=== PATIENT | female | born 1950 | race Caucasian/White ===

== ENCOUNTER → 2016-09-28 | Outpatient (CLI) | payer MEDICARE ==
[~2016-09-28] MED LIST: ADVI200C9 PO; CALTTAB5 PO; CENTTAB9 PO; FISH1000 PO; GEMF600 PO; GLUCTAB PO; LIPI40TA PO; TOPR25TA2 PO; VASO10TA8 PO
[2016-09-28 13:27] LABS: BACTERIA, URINE RARE /hpf; BLOOD, URINE NEG (NEG); GLUCOSE,URINE NEG (NEG); KETONE, URINE NEG (NEG); MUCUS URINE FEW /lpf (OCC); NITRITE,URINE NEG (NEG); PH, URINE 5.5 (5.0-8.5); SQUAMOUS EPITHELIAL CELL URINE 4 /hpf (0-5); URINE COLOR YELLOW (YELLW/STRAW)
[2016-09-28 13:37] LABS: ANION GAP 7 MEQ/L (5-15); BLOOD UREA NITROGEN 19 MG/DL (7-18); CHLORIDE 97 MEQ/L (98-107); GLUCOSE,FASTING 101 MG/DL (74-99); POTASSIUM 3.3 MEQ/L (3.5-5.1); SODIUM (NA) 137 MEQ/L (136-145)
[2016-09-28 13:44] LABS: ALKALINE PHOSPHATASE 75 U/L (45-117); ALT (GPT) 32 U/L (10-53); AST (GOT) 25 U/L (15-37); GLOMERULAR FILTRATION RATE 58 ML/MIN (>89); HDL CHOLESTEROL 39.9 MG/DL (40.0-60.0); LDL CHOLESTEROL 93 MG/DL (0-99); TOTAL BILIRUBIN ADULT 1.5 MG/DL (0.2-1.0)
== END ==
LOC: PLAB 10:13
PROVIDERS: ATTEND Family Medicine
DX: I10 Essential (primary) hypertension (principal); E78.2 Mixed hyperlipidemia
CPT/HCPCS: 36415; 80053; 80061; 81001

== ENCOUNTER → 2016-12-26 | Outpatient (CLI) | payer MEDICARE ==
[2016-12-26 16:09] LABS: BACTERIA, URINE RARE /hpf; BLOOD, URINE NEG (NEG); GLUCOSE,URINE NEG (NEG); KETONE, URINE NEG (NEG); MUCUS URINE FEW /lpf (OCC); NITRITE,URINE NEG (NEG); SQUAMOUS EPITHELIAL CELL URINE <1 /hpf (0-5); URINE COLOR LIGHT-YELLOW (YELLW/STRAW)
== END ==
LOC: PLAB 12:15
PROVIDERS: ATTEND Family Medicine
DX: R31.9 Hematuria, unspecified (principal)
CPT/HCPCS: 81001

== ENCOUNTER → 2017-05-12 | Outpatient (CLI) | payer MEDICARE ==
[2017-05-12 10:47] LABS: ALKALINE PHOSPHATASE 73 U/L (45-117); ALT (GPT) 35 U/L (10-53); TOTAL BILIRUBIN ADULT 1.5 MG/DL (0.2-1.0)
[2017-05-12 10:54] LABS: ANION GAP 12 MEQ/L (5-15); AST (GOT) 34 U/L (15-37); BICARBONATE 28.3 MEQ/L (21.0-32.0); BLOOD UREA NITROGEN 15 MG/DL (7-18); CHLORIDE 100 MEQ/L (98-107); GLOMERULAR FILTRATION RATE 64 ML/MIN (>89); GLUCOSE,FASTING 118 MG/DL (74-99); POTASSIUM 3.9 MEQ/L (3.5-5.1); SODIUM (NA) 140 MEQ/L (136-145)
== END ==
LOC: PLAB 08:26
PROVIDERS: ATTEND Family Medicine
DX: I10 Essential (primary) hypertension (principal); E78.2 Mixed hyperlipidemia
CPT/HCPCS: 36415; 80053; 80061

== ENCOUNTER 2017-08-07 05:14 | Observation (INO) | payer MEDICARE ==
[~2017-08-07] VITALS: Ht 162.6 cm; Wt 116.7 kg
[~2017-08-07 05:14] MED LIST changes: +ACET650T67 PO; -ADVI200C9 PO; +ASPI1TAB57 PO; +ATEN50TA7 PO; -CALTTAB5 PO; -CENTTAB9 PO; -FISH1000 PO; -GEMF600 PO; -GLUCTAB PO; +KRIL1000 PO; +LOSA25TA PO; +OCUVTAB4 PO; -TOPR25TA2 PO; -VASO10TA8 PO
[2017-08-07] MEDS ORDERED: ceFAZolin 2 GM PREMIX 50 ML IV SCH (05:45)
[2017-08-07] MEDS ORDERED: LACTATED RINGER'S 1000 ML IV PRN (05:45)
[2017-08-07] MEDS ORDERED: METOPROLOL TARTRATE 25 MG TAB PO PRN (05:45)
[2017-08-07] MEDS ORDERED: SODIUM CHLORID 0.9% 500 ML IV PRN (05:45)
[2017-08-07] MEDS ORDERED: CHLORHEXIDINE GLUCONATE 2 % 1 PACK (2 CLOTHS) TOPICAL PRN (05:45)
[2017-08-07] MEDS ORDERED: HEPARIN SODIUM - SQ 10,000 UNITS/ML VIAL SQ PRN (05:45)
[2017-08-07] MEDS ORDERED: POVIDONE IODINE 5% (ANTISEPSIS KIT) 4 APPLICATIONS EACH NARE PRN (05:45)
[2017-08-07] MEDS ORDERED: SODIUM CHLORIDE FLUSH PRN IV FLUSH (05:45)
[2017-08-07] MEDS ORDERED: ACETAMINOPHEN 1000 MG/100 ML 100 ML IV ONE (06:31)
[2017-08-07] MEDS ORDERED: SUGAMMADEX SODIUM 200 MG/2 ML VIAL IV PUSH ONE ×2 (06:31)
[2017-08-07] MEDS ORDERED: ARTIFICIAL TEARS OPTH OINT 3.5 APPLIC/3.5 GM TUBO ONE (06:32)
[2017-08-07] MEDS ORDERED: SODIUM CHLORIDE FLUSH BID IV FLUSH SCH (09:00)
[2017-08-07] MEDS ORDERED: LIDOCAINE 1%/EPINEPHrine 1:100,000 SOLN 20 ML VIAL INFIL ONE (10:07)
[2017-08-07] MEDS ORDERED: SODIUM CHLORIDE 0.9% FLUSH 10 ML FLUSH IV FLUSH PRN (10:45)
[2017-08-07] MEDS ORDERED: ONDANSETRON HCL 4 MG/2 ML VIAL IVP PRN (10:45)
[2017-08-07] MEDS ORDERED: diphenhydrAMINE HCL 25 MG CAP PO PRN (10:45)
[2017-08-07] MEDS ORDERED: oxyCODONE/ACETAMINOPHEN 5 MG/325 MG TAB PO PRN (10:45)
[2017-08-07] MEDS ORDERED: LORazepam 0.5 MG TAB PO PRN (10:45)
[2017-08-07] MEDS ORDERED: DO NOT ADM ANY ANTICOAGULANT DRUGS PRN (10:57)
[2017-08-07] MEDS ORDERED: *morphine SULFATE 8 MG/ML PERIprocedure ONLY ONE (11:06)
[2017-08-07] MEDS ORDERED: LIDOCAINE HCL 1% PF 5 ML SYRINGE OTHER ONE (12:00)
[2017-08-07] MEDS ORDERED: ePHEDrine/NS 25 MG/5 ML SYR IV ONE (12:00)
[2017-08-07] MEDS ORDERED: STERILE WATER FOR INJECTION 20 ML VIAL IV ONE (12:00)
[2017-08-07] MEDS ORDERED: ONDANSETRON HCL 4 MG/2 ML VIAL IV ONE (12:00)
[2017-08-07] MEDS ORDERED: PHENYLEPH/NS 1000 MCG/10 ML SYR IV ONE (12:00)
[2017-08-07] MEDS ORDERED: ROCURONIUM INJ 50 MG/5 ML SYRINGE IV PUSH ONE (12:00)
[2017-08-07] MEDS ORDERED: DEXAMETHASONE SOD PHOS 4 MG/ML VIAL IV ONE (12:00)
[2017-08-07] MEDS ORDERED: PROPOFOL 200 MG/20 ML AMP IV ONE (12:00)
[2017-08-07] MEDS ORDERED: VECURONIUM BROMIDE 20 MG VIAL IV ONE (12:00)
[2017-08-07] MEDS ORDERED: NORMOSOL R INJ 1,000 ML IV ONE (12:00)
[2017-08-07] MEDS ORDERED: KETOROLAC TROMETHAMINE 30 MG/ML (IVP) VIAL IV PUSH ONE (12:00)
[2017-08-07] MEDS ORDERED: LABETALOL HCL 100 MG/20 ML VIAL IV ONE (12:00)
[2017-08-07] MEDS ORDERED: MIDAZOLAM HCL 2 MG/2 ML VIAL IV ONE (12:00)
[2017-08-07] MEDS: KETOROLAC TROMETHAMINE 30 MG/ML (IVP) VIAL IVP SCH ×2 (12:00→18:25)
[2017-08-07] MEDS: D5-1/2 NS + KCL 20 MEQ INJ 1,000 ML IV SCH ×2 (12:21→21:12)
--- NOTE | 2017-08-07 12:29 | MP ---
cc: PHILLY DE LEON MD, KELLY L. MD SCHNEIDER, JULIE D. MD DATE OF SURGERY: 08/07/2017 PREOPERATIVE DIAGNOSIS Grade 1 endometrial adenocarcinoma. POSTOPERATIVE DIAGNOSIS 1. Grade 1 endometrial adenocarcinoma. 2. Left pelvic sidewall adhesions. PROCEDURE Robotic-assisted laparoscopic hysterectomy, bilateral salpingo-oophorectomy, lysis of adhesions. SURGEON Chinyere Joel MD VESSEL MANAGER Duncan or first assist registered nurse. ANESTHESIA General endotracheal anesthesia. ESTIMATED BLOOD LOSS 100 ccs. IV FLUIDS 1300 ccs. URINE OUTPUT 100 ccs. HISTORY 66-year-old female who had postmenopausal bleeding that she states started in May of this year, lead to further evaluation. Evaluation included an ultrasound, showed a thickened endometrial stripe of approximately 12 mm. There was a fullness near the fundus, part of which was thought to be a leiomyoma. Biopsy showed a grade 1 endometrial adenocarcinoma. CAT scan of the chest, abdomen and pelvis showed no overt evidence of metastatic disease. There was no pelvic or periaortic adenopathy. No ascites, intraperitoneal nodularity or mass. There was a small nodule noted in all lung of undetermined significance and followup imaging at some point was recommended. She has been counseled regarding these findings and options. She is seen again in the preop holding area where the findings are reviewed. Plan of care is discussed. Questions were answered. She expressed good understanding and agreed to move forward with surgery. STATEMENT OF COMPLEXITY/MODIFIER Complexity of case increased due to body habitus, weight 116.5 kilograms (BMI of 44) and also due to additional time required to lyse adhesions to mobilize the colon from its fixation against the left pelvic sidewall. Modifier should be applied accordingly. FINDINGS The uterine cavity sounded to 7 cm on nulliparous pelvic outlet. The tubes and ovaries grossly appeared normal. There were no appreciably enlarged pelvic or para-aortic lymph nodes. The liver diaphragm edges were smooth. The omentum, large, small bowel and adjacent mesentery appeared grossly normal with no peritoneal implants, no nodularity. The colon was fixed in the left pelvic sidewall overlying the left pelvic sidewall structures suggesting probable history of diverticulitis or other inflammatory colitis, no acute inflammation but adhesions persisted. There was some adhesions in the posterior cul-de-sac on the left. The uterus once removed showed a tumor to be approximately 4.8 cm in dimension, exophytic but there was invasion into the myometrium that appeared to be approximately 50% depth of invasion. There was no endocervical extension. The tumor was grade 1. PROCEDURE She was taken to the operating room and placed in dorsal lithotomy position after general endotracheal anesthesia was administered, time-out was undertaken. She was identified by sight recognition and hospital ID bracelet and the proposed procedure was reviewed and confirmed. She was carefully positioned in padded Rambo stirrups. Her arms were padded and secured to the sides. She was further secured to the operating table with eggcrate padding and tape in across chest over the shoulder fashion. All sites noted to be properly aligned with no malalignments or pressure points. She was prepped, draped in sterile fashion, placed in high lithotomy position. Narrow pelvic outlet did not allow entry of speculum so handheld small right-angle retractors were used to gain access. Digital exam identified and normal circumferentially smooth cervix and tenaculum was used and grasped the cervix. At this point the endocervical canal was identified. The endocervix was gradually dilated. The uterine cavity sounded to 7 cm and a small V-Care manipulator was inserted and secured in the usual fashion. Alegre catheter was placed in the bladder. She was returned to low lithotomy position. Change of sterile gloves was undertaken. We completed draping in anticipation of laparoscopy, confirmed that an orogastric tube was in the stomach on suction. With manual elevation of the abdominal wall and direct laparoscopic visualization a 5 mm cannula was placed in the left upper quadrant and atraumatic entry was confirmed as carbon dioxide gas was insufflated. 12 mm cannula was placed in the midline above the umbilicus, 8 mm cannula was placed in the right upper quadrant and left lateral quadrant and the original 5-mm exchanged for a 8-mm cannula. She was placed in Trendelenburg position. Peritoneal washings were obtained for cytology. The anatomy was surveyed with findings as described above. The small bowel was folded back on its mesenteric root and three Ray-Joshua sponges were placed around the root of small bowel mesentery. Robotic system was brought into the operative field, attached in usual fashion. Monopolar scissors, fenestrated bipolar forceps and Prograsp manipulators were placed in arms #1, 2 and 3, respectively and I took my place at the surgeon's console. Right round ligament was isolated, cauterized, transected. The anterior and posterior leafs of the broad ligament were opened. The right ureter was identified. The right infundibulopelvic ligament was isolated. The intervening peritoneum was opened. The infundibulopelvic ligament was isolated to the level of the pelvic brim where it was cauterized and transected. Posterior peritoneum was opened along the right side of the uterus and the cervix and the right vesicouterine peritoneum was dissected off the lower uterine segment and cervix. The right uterine vessels were skeletonized, cauterized and transected as were the cardinal, paracervical and uterosacral ligaments, thereby freeing the attachments along the right side of the uterus and cervix. Attention was directed toward the left side. Adhesions were taken down with sharp dissection, mobilizing the bowel and the mesentery and pericolonic fat that were adherent and overlying the left pelvic sidewall structures. These were taken down in stepwise fashion. The adhesions in the cul-de-sac were freed and the adhesions were taken proximally to mobilize the bowel up over the pelvic brim to gain access to the left pelvic sidewall structures. The left round ligament was isolated, cauterized and transected. The anterior and posterior leafs of the broad ligament were opened. The left ureter was identified and the left infundibulopelvic ligament was isolated. The intervening peritoneum was opened. The infundibulopelvic ligament was isolated to the level of the pelvic brim where it was cauterized and transected. Posterior peritoneum was opened along the left side of the uterus and cervix. The left vesicouterine peritoneum was dissected off the lower uterine segment and cervix. The left uterine vessels were skeletonized. The left uterine vessels were cauterized and transected as were the cardinal, paracervical and uterosacral ligaments, thereby freeing the attachments along the left side of the uterus and cervix. Circumferential colpotomy was performed the cervix on the upper vagina. The specimen was delivered transvaginally which included uterus, cervix, tubes and ovaries and a pneumooccluder balloon was placed in the vagina to maintain pneumoperitoneum. Instruments one and three exchanged for needle drivers as 0 Vicryl suture was introduced, the vaginal cuff was closed and secured at the left corner, full-thickness closure to the vaginal wall plus incorporating posterior peritoneum and edge of the uterosacral ligament, tied via instrument tie. The closure was held on countertraction as a running continuous full-thickness closure was carried across the vaginal apex incorporating the posterior peritoneum similarly affixing it at the right corner where it was tied securely. The needle was cut and removed. The integrity of the bladder was confirmed by filling the bladder with saline dyed with methylene blue and the bladder filled nicely under pressure. There were no areas of thinning of the bladder, certainly no extravasation of dye and a good margin between the vaginal cuff suture line and the bladder. Good peristalsis of ureters bilaterally and the bladder was drained. Pelvis was thoroughly irrigated. Small bleeders rendered hemostatic with bipolar cautery and hemostatic Surgicel powder was placed across the vaginal cuff. Preliminary pathology came back with low intermediate risk factors and that the tumor was 4.8 cm approximately 50% depth of invasion, but it was a grade 1 tumor, no endocervical extension. Careful inspection and palpation of the lymph node basins was undertaken. Knowing also that the CAT scan showed no overt evidence of abnormality, taking into account the potential morbidity versus potential benefit, a decision was made to forego formal lymphadenectomy. Taken into account is her body habitus, performance status. She has significant back pain that already may affect her gait, it was difficult for her to move from the stretcher to the surgical bed. She has some lower extremity edema and it was felt that the potential morbidity of lymph node dissection may exceed the benefit and it was felt therefore that all reasonable surgical objectives were completed in this individual. The robotic instruments were removed. The robotic system was disengaged from the operative field. I reentered the bedside under sterile condition. Each of the three Ray-Joshua sponges that were introduced were grasped and removed individually, each were inspected and noted to be removed in their entirety. Inspection of the peritoneal cavity revealed no remaining foreign objects and the preliminary counts were correct. The 12-mm fascial defect was closed with 0 Vicryl sutures using a fascia closure device with laparoscopic guidance, the sutures were tied securely which rendered the fascia completely airtight and hemostatic. The remaining cannulas were withdrawn. Carbon dioxide gas was removed from the peritoneal cavity. 3-0 Vicryl subcutaneous, 3-0 Vicryl subcuticular and Steri-Strips were used to close these incisions. She was returned to dorsal lithotomy position. The vaginal cuff was well supported, hemostatic. There were no vaginal lacerations in the upper vagina. There was some superficial mucosal irritation circumferentially around the introitus but without active bleeding other than just mild diffuse oozing and the remainder of the Surgicel powder was placed in the vaginal canal overlying these areas. Final counts were correct. There were no remaining foreign objects in the vagina. She was returned to dorsal supine position and was pending reversal of anesthesia when I left the operating room to precede her to the Post Anesthesia Care Unit. MD EBONY Dior/RICCARDO /11:03 AM /11:48 AM
--- NOTE | 2017-08-07 15:29 | PD.ONC.PN ---
Subjective Subjective Remarks post op check pt seen in PACU awaiting bed no complaints back pain, but that is chronic Objective Data Date Time Temp Pulse Resp B/P (MAP) Pulse Ox O2 Delivery O2 Flow Rate FiO2 08/07/17 13:30 83 15 123/59 (80) 100 Nasal Cannula 3 08/07/17 13:00 82 16 130/64 (86) 100 Nasal Cannula 3 08/07/17 12:30 98.7 84 16 107/56 (73) 100 Nasal Cannula 2 08/07/17 12:00 80 16 124/60 (81) 100 Nasal Cannula 3 08/07/17 11:45 80 17 119/57 (77) 100 Nasal Cannula 3 08/07/17 11:30 82 14 118/59 (78) 100 Nasal Cannula 3 08/07/17 11:15 86 15 118/58 (78) 98 Nasal Cannula 3 08/07/17 10:57 98.3 94 14 127/72 (90) 93 Nasal Cannula 3 08/07/17 06:48 98.8 75 18 100/57 (71) 95 08/07/17 08/07/17 08/07/17 07:00 15:00 23:00 Intake Total 1300 ml Output Total 200 ml Balance 1100 ml Administered Medications Medications (Trade) Dose Ordered Sig/Lamin Route PRN Reason Start Time Stop Time Status Last Admin Dose Admin Povidone Iodine (Betadine 5% Antisepsis Kit) 1 applic DIGITAL CARTOGRAPHIC TECHNICIAN PRN EACH NARE SEE LABEL COMMENTS 08/07/17 05:45 08/10/17 05:44 08/07/17 06:43 Chlorhexidine Gluconate (Chlorhexidine 2% Cloth) 3 pack DIGITAL CARTOGRAPHIC TECHNICIAN PRN TOPICAL SEE LABEL COMMENTS 08/07/17 05:45 08/10/17 05:44 08/07/17 06:00 Cefazolin Sodium/ Dextrose 50 ml @ 100 mls/hr DIGITAL CARTOGRAPHIC TECHNICIAN IV 08/07/17 05:45 08/10/17 05:44 08/07/17 06:38 Heparin Sodium (Porcine) (Heparin Inj) 5,000 units DIGITAL CARTOGRAPHIC TECHNICIAN PRN SQ GIVE PRE-OP DIGITAL CARTOGRAPHIC TECHNICIAN TO OR 08/07/17 05:45 08/07/17 22:00 08/07/17 06:39 Potassium Chloride/Dextrose/ Sod Cl 1,000 ml @ 100 mls/hr Q10H IV 08/07/17 10:43 12/11/17 12:21 Objective Remarks GENERAL: Well-nourished, well-developed patient. SKIN: Warm and dry. HEAD: Normocephalic. EYES: No scleral icterus. No injection or drainage. CARDIOVASCULAR: Regular rate and rhythm without murmurs. RESPIRATORY: Breath sounds equal bilaterally. No accessory muscle use. GASTROINTESTINAL: Abdomen soft, SS are c/d/i EXTREMITIES: teds and scds MUSCULOSKELETAL: Adequate muscle tone. NEUROLOGICAL: No obvious focal deficit, sleeping but awakens to voice PSYCHIATRIC: Appropriate mood and affect; insight and judgment normal. Assessment/Plan Problem List: (1) Endometrial cancer ICD Codes: C54.1 - Malignant neoplasm of endometrium Plan: s/p RA lap hyst with BSO for endometrial cancer post op orders in chart ADAT ice chips now OOB to chair pain meds per EMR D/C yovani in morning and anticipate discharge home tomorrow Teri Ervin Aug 07, 2017 15:29
[2017-08-07 16:00] VITALS: BP 106/42; PULSE 101; RESP 17; TEMP 99.7; O2SAT 96
[2017-08-07] MEDS: oxyCODONE/ACETAMINOPHEN 5 MG/325 MG TAB PO PRN (16:09)
[2017-08-07 20:00] VITALS: BP 104/47; PULSE 95; RESP 20; TEMP 99.5; O2SAT 96
[2017-08-07] MEDS: SODIUM CHLORIDE 0.9% FLUSH 10 ML FLUSH IV FLUSH SCH (21:00)
[2017-08-07] MEDS ORDERED: ATORVASTATIN 40 MG TAB PO SCH (21:00)
[2017-08-07] MEDS ORDERED: ATENOLOL/CHLORTHALIDONE 50/25 TAB PO SCH (21:00)
[2017-08-07] MEDS ORDERED: LOSARTAN 25 MG TAB PO SCH (21:00)
[2017-08-08] MEDS: KETOROLAC TROMETHAMINE 30 MG/ML (IVP) VIAL IVP SCH ×2 (01:05→06:10)
[2017-08-08 04:00] VITALS: BP 93/42; PULSE 92; RESP 20; TEMP 97.5; O2SAT 97
[2017-08-08] MEDS: SODIUM CHLORIDE 0.9% FLUSH 10 ML FLUSH IV FLUSH SCH (07:48)
[2017-08-08] MEDS: D5-1/2 NS + KCL 20 MEQ INJ 1,000 ML IV SCH (07:48)
[2017-08-08 08:00] VITALS: BP 119/56; PULSE 92; RESP 17; TEMP 99.6; O2SAT 96
[2017-08-08] MEDS ORDERED: OXYC1TAB63 PO (08:14)
--- NOTE | 2017-08-08 08:37 | MD ---
cc: PHILLY DE LEON,JEREMIAS HERNANDEZ,CHET Mcintyre MD ADMISSION DATE: 08/07/2017 DISCHARGE DATE: 08/08/2017 [facility] Visit Search.Discharge Date PROCEDURE Robotic-assisted laparoscopic hysterectomy and bilateral salpingo-oophorectomy, lysis of adhesions. DIAGNOSIS Endometrial cancer. HOSPITAL COURSE She did well in the early postop period, hemodynamically stable, tolerating oral intake. Alegre catheter removed pending voiding. In's and out's 2863/1100. LABORATORY DATA Still pending at time of this dictation. PHYSICAL EXAMINATION VITAL SIGNS: Afebrile, pulse 86-101, respirations 15-20, blood pressure 93-114/42-62, O2 saturation is greater than or equal to 96%. GENERAL: Alert and oriented x3, in no acute distress. LUNGS: Clear at the apices. Mild rales at the bases. CARDIOVASCULAR: Regular rate and rhythm. ABDOMEN: Soft. Incisions clean, dry. DIAL PAINTER: No bleeding. EXTREMITIES: Nontender. ASSESSMENT Postoperative day #1 doing well in early postop period. FINDINGS AT THE TIME OF SURGERY Preliminary pathology reviewed and steps taken at surgery summarized. DISPOSITION Activities and restrictions again discussed. Questions were answered. She expressed good understanding of our plan. I anticipate discharge to home. DISCHARGE MEDICATIONS She is to resume her prior medications. She will have a prescription for Percocet. FOLLOWUP She is to call our office to schedule follow up within approximately 2 weeks and our office number is again made available should she have any questions or problems between now the time of scheduled followup. MD EBONY Dior/COREY /8:15 AM /8:27 AM
[2017-08-08] MEDS: oxyCODONE/ACETAMINOPHEN 5 MG/325 MG TAB PO PRN (10:16)
[2017-08-08 10:58] LABS: AUTOMATED NEUTROPHIL # 9.7 TH/MM3 (1.8-7.7); BASOPHIL % 0.2 % (0.0-2.0); EOSINOPHIL % 0.1 % (0.0-4.0); HEMATOCRIT 38.5 % (35.0-46.0); HEMO FLAGS DIFF FINAL; LYMPH % 15.7 % (9.0-44.0); MEAN CELL VOLUME 93.7 FL (80.0-100.0); MEAN CORPUSCULAR HEMOGLOBIN 31.8 PG (27.0-34.0); MEAN CORPUSCULAR HGB CONC 33.9 % (32.0-36.0); MONO % 6.8 % (0.0-8.0); NEUT % 77.2 % (16.0-70.0); PLATELET COUNT 306 TH/MM3 (150-450); RED BLOOD COUNT 4.11 MIL/MM3 (4.00-5.30); RED CELL DISTRIBUTION WIDTH 12.5 % (11.6-17.2); WHITE BLOOD COUNT 12.5 TH/MM3 (4.0-11.0)
[2017-08-08 11:26] LABS: BICARBONATE 30.7 MEQ/L (21.0-32.0); POTASSIUM 3.2 MEQ/L (3.5-5.1)
== END 2017-08-08 12:37 | disposition home or self-care (01) ==
LOC: HSDC 05:14 → HSDI 10:45 → N07B 15:45
PROVIDERS: ADMIT Obstetrics & Gynecology Gynecologic Oncology; ATTEND Obstetrics & Gynecology Gynecologic Oncology
DX: C54.1 Malignant neoplasm of endometrium (principal); N73.6 Female pelvic peritoneal adhesions (postinfective); E78.00 Pure hypercholesterolemia, unspecified; M54.9 Dorsalgia, unspecified; G89.29 Other chronic pain
CPT/HCPCS: 00840; 58571; 80048; 85025; 86850; 86900; 86901; 88112; 88309; 88329; 94150; 96365; 96366; 96375; 96376; G0378; J0131; J0690; J1100; J1644; J1885; J2250; J2270; J2370; J2405; J3010; J3480; J7120; S2900; 88307

== ENCOUNTER → 2017-11-08 | Outpatient (CLI) | payer MEDICARE ==
[~2017-11-08] MED LIST changes: +OXYC1TAB63 PO
[2017-11-08 11:03] LABS: ALT (GPT) 28 U/L (10-53); AST (GOT) 24 U/L (15-37); BICARBONATE 32.5 MEQ/L (21.0-32.0); BLOOD UREA NITROGEN 19 MG/DL (7-18); CALCIUM 9.2 MG/DL (8.5-10.1); CHLORIDE 98 MEQ/L (98-107); CHOLESTEROL 182 MG/DL (120-200); CREATININE 0.86 MG/DL (0.50-1.00); GLOMERULAR FILTRATION RATE 66 ML/MIN (>89); GLUCOSE,FASTING 109 MG/DL (74-99); SODIUM (NA) 138 MEQ/L (136-145); TRIGLYCERIDES 471 MG/DL (42-150)
[2017-11-08 11:05] LABS: ALKALINE PHOSPHATASE 73 U/L (45-117); CHOLESTEROL/ HDL RATIO 4.86 RATIO; HDL CHOLESTEROL 37.4 MG/DL (40.0-60.0); TOTAL BILIRUBIN ADULT 1.8 MG/DL (0.2-1.0); TOTAL PROTEIN 7.2 GM/DL (6.4-8.2)
== END ==
LOC: PLAB 08:13
PROVIDERS: ATTEND Family Medicine
DX: E78.2 Mixed hyperlipidemia (principal); I10 Essential (primary) hypertension
CPT/HCPCS: 36415; 80053; 80061

== ENCOUNTER → 2018-02-07 | Outpatient (CLI) | payer MEDICARE ==
[2018-02-07 10:15] LABS: ALBUMIN 3.9 GM/DL (3.4-5.0)
[2018-02-07 10:19] LABS: CHOLESTEROL/ HDL RATIO 3.75 RATIO; DIRECT BILIRUBIN ADULT 0.3 MG/DL (0.0-0.2); HDL CHOLESTEROL 54.6 MG/DL (40.0-60.0); INDIRECT BILIRUBIN 1.5 MG/DL (0.0-0.8); TOTAL BILIRUBIN ADULT 1.8 MG/DL (0.2-1.0); TOTAL PROTEIN 7.3 GM/DL (6.4-8.2)
== END ==
LOC: PLAB 07:25
PROVIDERS: ATTEND Family Medicine
DX: E78.2 Mixed hyperlipidemia (principal)
CPT/HCPCS: 36415; 80061; 80076; 82550